=== PATIENT | male | born 1985 | race Caucasian/White ===

== ENCOUNTER 2020-06-30 11:54 | Inpatient (IN) ==
[2020-06-30] MEDS ORDERED: Ondansetron 4 MG/2 ML VIAL IVP PRN ×2 (15:33→20:50)
[2020-06-30] MEDS ORDERED: *HR* Promethazine 25 MG/ML VIAL IM PRN ×2 (15:33→20:50)
[2020-06-30] MEDS ORDERED: Naloxone 0.4 MG/ML INJ IVP PRN ×2 (15:33→20:50)
[2020-06-30] MEDS ORDERED: *HR* HYDROmorphone (PF) 1 MG/ML SYRINGE IVP ONE (15:38)
[2020-06-30] MEDS ORDERED: Piperacillin/Tazobactam 3.375 GM in 0.9 % Sodium Chloride Mini Bag 100 ML IVPB SCH ×2 (16:00→22:00)
[2020-06-30] MEDS ORDERED: Potassium Chloride 20 MEQ, Lidocaine 1% 2 ML in 0.9 % Sodium Chloride 250 ML IVPB ONE (16:07)
[2020-06-30] MEDS ORDERED: 0.9 % Sodium Chloride 1,000 ML IVC ONE ×2 (16:11→20:50)
[2020-06-30] MEDS ORDERED: Vancomycin 1,500 MG/265 ML IV.SOLN IVPB SCH (18:00)
[2020-06-30] MEDS ORDERED: *HR* FentaNYL (PF) 100 MCG/2 ML VIAL ONE (18:10)
[2020-06-30] MEDS ORDERED: *HR* Midazolam HCl 2 MG/2 ML VIAL ONE (18:10)
[2020-06-30] MEDS ORDERED: Lidocaine -MPF 2% 2 ML VIAL ONE (18:10)
[2020-06-30] MEDS ORDERED: *HR* Succinylcholine 200 MG/10 ML VIAL IVP ONE (18:10)
[2020-06-30] MEDS ORDERED: Dexamethasone 4 MG/ML VIAL ONE (18:10)
[2020-06-30] MEDS ORDERED: *HR* Propofol 200 MG/20 ML VIAL IVP ONE (18:10)
[2020-06-30] MEDS ORDERED: Lidocaine -MPF 4% 5 ML AMPUL ONE (18:10)
[2020-06-30] MEDS ORDERED: Ondansetron 4 MG/2 ML VIAL ONE (18:10)
[2020-06-30] MEDS ORDERED: *HR* HYDROMORPHONE 2 MG/ML VIAL ONE (19:10)
[2020-06-30] MEDS: predniSONE 20 MG TABLET PO SCH (22:27)
[2020-06-30] MEDS: Vancomycin 1,500 MG/265 ML IV.SOLN IVPB SCH (22:28)
[2020-07-01 02:01] LABS: Red Cell Distribution Width 13.2 % (11.5-14.5)
[2020-07-01 02:02] LABS: Basophils # 0.1 K/mcL (0.0-0.2); Basophils % 0.4 %; Eosinophils % 0.2 %; Hematocrit 37.5 % (37.5-50.1); Hemoglobin 11.4 g/dL (12.9-16.9); Immature Granulocytes % 1.4 % (0-4); Lymphocytes # 1.1 K/mcL (0.6-4.6); Mean Corpuscular HGB Conc 30.4 g/dL (31.6-35.5); Mean Corpuscular Hemoglobin 26.6 pg (28.0-33.3); Mean Corpuscular Volume 87.6 fL (83.0-100.0); Mean Platelet Volume 9.9 fL (9.4-12.4); Monocytes # 1.4 K/mcL (0.0-1.3); Monocytes % 5.1 %; Neutrophils # 23.6 K/mcL (1.6-8.9); Platelet Count 330 K/mcL (140-400); Red Blood Count 4.28 M/mcL (4.19-5.50); Segmented Neutrophils % 88.9 %; White Blood Count 26.5 K/mcL (4.3-11.1)
[2020-07-01 02:06] LABS: Eosinophils # 0.1 K/mcL (0.0-0.6)
[2020-07-01 02:14] LABS: BUN/Creatinine Ratio 11 (6-26); Blood Urea Nitrogen 12 mg/dL (6-20); Calcium 8.4 mg/dL (8.6-10.3); Carbon Dioxide 26 mEq/L (23-29); Chloride 103 mEq/L (98-107); Glucose 156 mg/dL (70-105); Osmolality,Calculated 285 (280-300); Potassium 4.3 mEq/L (3.5-5.1); Sodium 136 mEq/L (136-145); eGFR For African Americans > 60 (> 60); eGFR For Non-African Americans > 60 (> 60)
[2020-07-01 03:06] LABS: Platelet Estimate Normal (Normal)
[2020-07-01 03:45] LABS: Amphetamine Screen,Urine Negative ng/mL (Cutoff=1000); Barbiturate Screen,Urine Negative ng/mL (Cutoff=200); Benzodiazepines Screen,Urine Positive ng/mL (Cutoff=200); Cannabinoid Screen,Urine Negative ng/mL (Cutoff = 50); Cocaine Screen,Urine Negative ng/mL (Cutoff= 300); Opiate Screen,Urine Positive ng/mL (Cutoff=300); Phencyclidine Screen,Urine Negative ng/mL (Cutoff=25)
[2020-07-01] MEDS ORDERED: Ketorolac 30 MG/ML VIAL IVP ONE (04:02)
[2020-07-01] MEDS ORDERED: *HR* HYDROmorphone 2 MG TABLET PO ONE ×2 (04:31→20:54)
[2020-07-01] MEDS: Piperacillin/Tazobactam 3.375 GM in 0.9 % Sodium Chloride Mini Bag 100 ML IVPB SCH ×5 (05:06→15:30)
[2020-07-01] MEDS: Vancomycin 1,500 MG/265 ML IV.SOLN IVPB SCH ×3 (05:16→23:02)
[2020-07-01] MEDS ORDERED: *HR* LORazepam 2 MG/ML VIAL IVP ONE (06:09)
[2020-07-01] MEDS: predniSONE 20 MG TABLET PO SCH (08:24)
[2020-07-01] MEDS: VELPATASVIR PO SCH (08:27)
[2020-07-01] MEDS: SOFOSBUVIR PO SCH (08:27)
[2020-07-01 11:34] LABS: Estimated Average Glucose 120 mg/dl
[2020-07-01] MEDS: 0.9 % Sodium Chloride 1,000 ML IVC SCH ×2 (13:34→19:40)
[2020-07-02] MEDS: Piperacillin/Tazobactam 3.375 GM in 0.9 % Sodium Chloride Mini Bag 100 ML IVPB SCH ×4 (00:38→23:28)
[2020-07-02] MEDS ORDERED: *HR* LORazepam 2 MG/ML VIAL IVP ONE (03:37)
[2020-07-02] MEDS: *HR* HYDROmorphone 2 MG TABLET PO PRN ×3 (04:03→10:00)
[2020-07-02] MEDS: Vancomycin 1,500 MG/265 ML IV.SOLN IVPB SCH (05:18)
[2020-07-02 05:32] LABS: Basophils # 0.1 K/mcL (0.0-0.2); Basophils % 0.6 %; Eosinophils # 0.3 K/mcL (0.0-0.6); Eosinophils % 1.3 %; Immature Granulocytes % 2.7 % (0-4); Mean Corpuscular HGB Conc 31.4 g/dL (31.6-35.5); Mean Corpuscular Hemoglobin 27.4 pg (28.0-33.3); Mean Corpuscular Volume 87.1 fL (83.0-100.0); Mean Platelet Volume 9.4 fL (9.4-12.4); Monocytes # 1.2 K/mcL (0.0-1.3); Monocytes % 5.8 %; Neutrophils # 14.8 K/mcL (1.6-8.9); Platelet Count 375 K/mcL (140-400); Red Blood Count 4.02 M/mcL (4.19-5.50); Red Cell Distribution Width 13.1 % (11.5-14.5); Segmented Neutrophils % 74.6 %; White Blood Count 19.8 K/mcL (4.3-11.1)
[2020-07-02 05:51] LABS: BUN/Creatinine Ratio 16 (6-26); Blood Urea Nitrogen 13 mg/dL (6-20); Calcium 8.6 mg/dL (8.6-10.3); Carbon Dioxide 30 mEq/L (23-29); Chloride 102 mEq/L (98-107); Glucose 163 mg/dL (70-105); Magnesium 2.1 mg/dL (1.6-2.6); Osmolality,Calculated 292 (280-300); Phosphorous 3.2 mg/dL (2.7-4.5); Potassium 3.5 mEq/L (3.5-5.1); Sodium 139 mEq/L (136-145); eGFR For African Americans > 60 (> 60); eGFR For Non-African Americans > 60 (> 60)
[2020-07-02] MEDS: VELPATASVIR PO SCH (07:51)
[2020-07-02] MEDS: SOFOSBUVIR PO SCH (07:51)
[2020-07-02] MEDS: 0.9 % Sodium Chloride 1,000 ML IVC SCH ×3 (08:02→23:31)
[2020-07-02] MEDS ORDERED: Ketorolac 15 MG/ML VIAL IVP PRN (11:00)
[2020-07-02] MEDS: Vancomycin 2,000 MG/520 ML IV.SOLN IVPB SCH ×2 (13:38→21:10)
[2020-07-02] MEDS: *HR* HYDROcodone/Acet 7.5/325 mg TABLET PO PRN (14:08)
[2020-07-02] MEDS ORDERED: *HR* HYDROmorphone 2 MG TABLET PO ONE (23:15)
[2020-07-03 01:57] LABS: Basophils # 0.1 K/mcL (0.0-0.2); Basophils % 0.9 %; Eosinophils # 0.3 K/mcL (0.0-0.6); Eosinophils % 2.7 %; Hemoglobin 10.7 g/dL (12.9-16.9); Immature Granulocytes % 4.3 % (0-4); Lymphocytes # 3.6 K/mcL (0.6-4.6); Lymphocytes % 30.8 %; Mean Corpuscular HGB Conc 31.5 g/dL (31.6-35.5); Mean Corpuscular Hemoglobin 27.6 pg (28.0-33.3); Mean Corpuscular Volume 87.6 fL (83.0-100.0); Mean Platelet Volume 9.3 fL (9.4-12.4); Monocytes # 0.9 K/mcL (0.0-1.3); Monocytes % 7.6 %; Neutrophils # 6.3 K/mcL (1.6-8.9); Platelet Count 377 K/mcL (140-400); Red Blood Count 3.88 M/mcL (4.19-5.50); Red Cell Distribution Width 13.2 % (11.5-14.5); Segmented Neutrophils % 53.7 %; White Blood Count 11.8 K/mcL (4.3-11.1)
[2020-07-03] MEDS: *HR* HYDROcodone/Acet 7.5/325 mg TABLET PO PRN ×4 (06:17→21:38)
[2020-07-03 09:05] LABS: BUN/Creatinine Ratio 15 (6-26); Blood Urea Nitrogen 14 mg/dL (6-20); Calcium 8.1 mg/dL (8.6-10.3); Carbon Dioxide 30 mEq/L (23-29); Chloride 104 mEq/L (98-107); Glucose 100 mg/dL (70-105); Osmolality,Calculated 287 (280-300); Potassium 3.9 mEq/L (3.5-5.1); Sodium 138 mEq/L (136-145); eGFR For African Americans > 60 (> 60); eGFR For Non-African Americans > 60 (> 60)
[2020-07-03] MEDS: Vancomycin 2,000 MG/520 ML IV.SOLN IVPB SCH ×2 (11:04→17:35)
[2020-07-03] MEDS: Piperacillin/Tazobactam 3.375 GM in 0.9 % Sodium Chloride Mini Bag 100 ML IVPB SCH ×3 (11:05→23:41)
[2020-07-03] MEDS: VELPATASVIR PO SCH (11:10)
[2020-07-03] MEDS: SOFOSBUVIR PO SCH (11:10)
[2020-07-03] MEDS: 0.9 % Sodium Chloride 1,000 ML IVC SCH (17:33)
[2020-07-03] MEDS ORDERED: *HR* LORazepam 2 MG/ML VIAL IVP ONE (20:45)
[2020-07-03] MEDS ORDERED: Acetaminophen 325 MG TABLET PO ONE (21:44)
[2020-07-04 01:22] LABS: Hematocrit 37.7 % (37.5-50.1); Hemoglobin 11.8 g/dL (12.9-16.9); Mean Corpuscular HGB Conc 31.3 g/dL (31.6-35.5); Mean Corpuscular Hemoglobin 27.6 pg (28.0-33.3); Mean Corpuscular Volume 88.1 fL (83.0-100.0); Mean Platelet Volume 8.9 fL (9.4-12.4); Platelet Count 409 K/mcL (140-400); Red Blood Count 4.28 M/mcL (4.19-5.50); Red Cell Distribution Width 13.3 % (11.5-14.5); White Blood Count 11.9 K/mcL (4.3-11.1)
[2020-07-04 01:35] LABS: BUN/Creatinine Ratio 15 (6-26); Blood Urea Nitrogen 15 mg/dL (6-20); Calcium 8.6 mg/dL (8.6-10.3); Carbon Dioxide 30 mEq/L (23-29); Chloride 104 mEq/L (98-107); Glucose 104 mg/dL (70-105); Osmolality,Calculated 291 (280-300); Potassium 3.9 mEq/L (3.5-5.1); Sodium 140 mEq/L (136-145); eGFR For African Americans > 60 (> 60); eGFR For Non-African Americans > 60 (> 60)
[2020-07-04 01:50] LABS: Eosinophils # 0.2 K/mcL (0.0-0.6); Lymphocytes # 3.6 K/mcL (0.6-4.6); Monocytes # 0.7 K/mcL (0.0-1.3); Neutrophils # 7.1 K/mcL (1.6-8.9)
[2020-07-04] MEDS: *HR* HYDROcodone/Acet 7.5/325 mg TABLET PO PRN (01:59)
[2020-07-04] MEDS: Vancomycin 2,000 MG/520 ML IV.SOLN IVPB SCH ×2 (02:00→05:10)
[2020-07-04 07:25] VITALS: BP 108/71
[2020-07-04] MEDS ORDERED: Vancomycin 1,500 MG/265 ML IV.SOLN IVPB SCH (10:00)
== END 2020-07-04 11:04 | disposition home or self-care (01) | DRG 854 ==
LOC: 3BNU → SUATTDRO 14:17
PROVIDERS: ADMIT Internal Medicine; ATTEND Family Medicine

== ENCOUNTER 2021-02-24 21:19 | Inpatient (IN) ==
[2021-02-24] MEDS ORDERED: 0.9 % Sodium Chloride 1,000 ML IVC ONE ×2 (21:30→22:01)
[2021-02-24] MEDS ORDERED: Piperacillin/Tazobactam 3.375 GM in 0.9 % Sodium Chloride Mini Bag 100 ML IVPB ONE (21:30)
[2021-02-24 21:44] LABS: Basophils # 0.1 K/mcL (0.0-0.2); Eosinophils # 0.1 K/mcL (0.0-0.6); Hemoglobin 13.2 g/dL (12.9-16.9); Immature Granulocytes % 4.6 % (0-4); Lymphocytes # 2.9 K/mcL (0.6-4.6); Lymphocytes % 24.1 %; Mean Corpuscular HGB Conc 30.7 g/dL (31.6-35.5); Mean Corpuscular Hemoglobin 26.6 pg (28.0-33.3); Mean Corpuscular Volume 86.7 fL (83.0-100.0); Mean Platelet Volume 9.6 fL (9.4-12.4); Monocytes # 0.6 K/mcL (0.0-1.3); Monocytes % 5.1 %; Neutrophils # 7.6 K/mcL (1.6-8.9); Platelet Count 340 K/mcL (140-400); Red Blood Count 4.96 M/mcL (4.19-5.50); Red Cell Distribution Width 13.5 % (11.5-14.5); Segmented Neutrophils % 64.2 %; White Blood Count 11.9 K/mcL (4.3-11.1)
[2021-02-24 22:05] LABS: Alanine Aminotransferase 16 Units/L (7-52); Albumin 4.2 g/dL (3.5-5.7); Albumin/Globulin Ratio 1.3 (1.1-2.2); Alkaline Phosphatase 71 Units/L (34-104); Aspartate Amino Transferase 28 Units/L (13-39); BUN/Creatinine Ratio 11 (6-26); Bilirubin,Indirect 0.3 mg/dL (0.0-1.0); Bilirubin,Total 0.3 mg/dL (0.3-1.0); Blood Urea Nitrogen 19 mg/dL (6-20); Calcium 9.1 mg/dL (8.6-10.3); Carbon Dioxide 23 mEq/L (23-29); Chloride 103 mEq/L (98-107); Globulin 3.3 g/dL (2.4-3.5); Glucose 242 mg/dL (70-105); Osmolality,Calculated 298 (280-300); Potassium 4.2 mEq/L (3.5-5.1); Sodium 139 mEq/L (136-145); Total Protein 7.5 g/dL (6.4-8.9); eGFR For African Americans 55 (> 60); eGFR For Non-African Americans 45 (> 60)
[2021-02-24] MEDS ORDERED: methylPREDNISolone 125 MG/2 ML VIAL IVP ONE (22:17)
[2021-02-24] MEDS ORDERED: Ipratropium/Albuterol Neb 3 ML IH PRN (22:17)
[2021-02-24] MEDS ORDERED: Ipratropium/Albuterol Neb 3 ML IH ONE (22:19)
[2021-02-24 22:37] LABS: Troponin I < 0.03 ng/mL (< 0.04)
[2021-02-24 22:58] LABS: ABG Base Excess -2 mEq/L (-2 to 3); ABG HCO3 25 mEq/L (21-27); ABG Oxygen Saturation 88 % (95-98); ABG PCO2 51 mmHg (35-45); ABG PO2 61 mmHg (85-104); ABG TCO2 27 mEq/L (20-26)
[2021-02-25] MEDS ORDERED: Naloxone 0.4 MG/ML INJ IVP PRN (00:42)
[2021-02-25] MEDS ORDERED: Ondansetron 4 MG/2 ML VIAL IVP PRN (00:42)
[2021-02-25 03:37] LABS: Hematocrit 44.1 % (37.5-50.1); Hemoglobin 13.4 g/dL (12.9-16.9); Immature Platelets 5.5 % (1.1-6.1); Mean Corpuscular HGB Conc 30.4 g/dL (31.6-35.5); Mean Corpuscular Hemoglobin 26.4 pg (28.0-33.3); Mean Corpuscular Volume 86.8 fL (83.0-100.0); Mean Platelet Volume 10.9 fL (9.4-12.4); Platelet Count 175 K/mcL (140-400); Red Blood Count 5.08 M/mcL (4.19-5.50); Red Cell Distribution Width 13.5 % (11.5-14.5); White Blood Count 8.9 K/mcL (4.3-11.1)
[2021-02-25 03:41] LABS: INR 1.1; Prothrombin Time 12.8 Seconds (9.4-12.1)
[2021-02-25 03:56] LABS: BUN/Creatinine Ratio 17 (6-26); Blood Urea Nitrogen 20 mg/dL (6-20); Calcium 8.3 mg/dL (8.6-10.3); Carbon Dioxide 23 mEq/L (23-29); Chloride 109 mEq/L (98-107); Glucose 122 mg/dL (70-105); Magnesium 1.9 mg/dL (1.6-2.6); Osmolality,Calculated 294 (280-300); Potassium 4.3 mEq/L (3.5-5.1); Sodium 140 mEq/L (136-145); eGFR For African Americans > 60 (> 60); eGFR For Non-African Americans > 60 (> 60)
[2021-02-25 04:37] LABS: Lymphocytes # 0.5 K/mcL (0.6-4.6); Monocytes # 0.4 K/mcL (0.0-1.3); Neutrophils # 7.8 K/mcL (1.6-8.9); Platelet Estimate Normal (Normal); Toxic Granulation Present (Not Present)
[2021-02-25] MEDS: Piperacillin/Tazobactam 3.375 GM in 0.9 % Sodium Chloride Mini Bag 100 ML IVPB SCH ×3 (05:38→21:28)
[2021-02-25] MEDS ORDERED: Isovue-370 500 ML BOTTLE IVP ONE (07:49)
[2021-02-25 14:58] LABS: Bilirubin,Urine Negative (Negative); Blood,Urine Negative (Negative); Clarity,Urine Clear (Clear); Color,Urine Yellow (Yellow); Glucose,Urine (UA) Normal (Normal); Ketones,Urine Negative (Negative); Leukocyte Esterase,Urine Negative (Negative); Nitrite,Urine Negative (Negative); PH,Urine 6.5 pH Units (5.0-8.0); Protein,Urine Negative (Neg-Trace); Specific Gravity,Urine 1.015 (1.010-1.025); Urobilinogen,Urine Normal (Normal)
[2021-02-25] MEDS: Ipratropium/Albuterol Neb 3 ML IH SCH ×3 (15:28→23:50)
[2021-02-25 16:05] LABS: Amphetamine Screen,Urine Negative ng/mL (Cutoff=1000); Barbiturate Screen,Urine Negative ng/mL (Cutoff=200); Benzodiazepines Screen,Urine Positive ng/mL (Cutoff=200); Cannabinoid Screen,Urine Negative ng/mL (Cutoff = 50); Cocaine Screen,Urine Negative ng/mL (Cutoff= 300); Opiate Screen,Urine Negative ng/mL (Cutoff=300); Phencyclidine Screen,Urine Negative ng/mL (Cutoff=25)
[2021-02-25] MEDS: Acetaminophen 325 MG TABLET PO PRN (20:55)
[2021-02-25] MEDS ORDERED: hydrOXYzine pamoate 25 MG CAPSULE PO ONE (21:13)
[2021-02-26 02:02] LABS: Basophils % 0.1 %; Hematocrit 38.7 % (37.5-50.1); Hemoglobin 12.3 g/dL (12.9-16.9); Immature Granulocytes % 0.3 % (0-4); Lymphocytes # 1.2 K/mcL (0.6-4.6); Lymphocytes % 8.7 %; Mean Corpuscular HGB Conc 31.8 g/dL (31.6-35.5); Mean Corpuscular Volume 84.9 fL (83.0-100.0); Mean Platelet Volume 10.1 fL (9.4-12.4); Monocytes # 0.9 K/mcL (0.0-1.3); Monocytes % 6.5 %; Neutrophils # 11.2 K/mcL (1.6-8.9); Platelet Count 261 K/mcL (140-400); Red Blood Count 4.56 M/mcL (4.19-5.50); Red Cell Distribution Width 13.7 % (11.5-14.5); Segmented Neutrophils % 84.4 %; White Blood Count 13.3 K/mcL (4.3-11.1)
[2021-02-26 02:31] LABS: BUN/Creatinine Ratio 16 (6-26); Blood Urea Nitrogen 15 mg/dL (6-20); Calcium 8.7 mg/dL (8.6-10.3); Carbon Dioxide 26 mEq/L (23-29); Chloride 105 mEq/L (98-107); Glucose 110 mg/dL (70-105); Osmolality,Calculated 289 (280-300); Potassium 4.1 mEq/L (3.5-5.1); Sodium 139 mEq/L (136-145); eGFR For African Americans > 60 (> 60); eGFR For Non-African Americans > 60 (> 60)
[2021-02-26] MEDS: Ipratropium/Albuterol Neb 3 ML IH SCH ×6 (03:02→23:43)
[2021-02-26] MEDS: Piperacillin/Tazobactam 3.375 GM in 0.9 % Sodium Chloride Mini Bag 100 ML IVPB SCH ×3 (05:08→21:40)
[2021-02-26] MEDS: Acetaminophen 325 MG TABLET PO PRN ×2 (05:21→11:00)
[2021-02-26] MEDS: hydrOXYzine pamoate 25 MG CAPSULE PO PRN ×2 (10:40→19:37)
[2021-02-26] MEDS: *HR* HYDROcodone/Acet 5/325 mg TABLET PO PRN ×2 (15:06→19:36)
[2021-02-26] MEDS: *HR* Heparin 5,000 UNIT/ML VIAL SQ SCH (18:07)
[2021-02-27] MEDS: *HR* HYDROcodone/Acet 5/325 mg TABLET PO PRN ×6 (00:07→21:53)
[2021-02-27] MEDS: Benzonatate 100 MG CAPSULE PO PRN ×2 (01:18→13:36)
[2021-02-27] MEDS: Ipratropium/Albuterol Neb 3 ML IH SCH ×6 (03:54→23:21)
[2021-02-27] MEDS: Piperacillin/Tazobactam 3.375 GM in 0.9 % Sodium Chloride Mini Bag 100 ML IVPB SCH ×3 (05:02→21:53)
[2021-02-27] MEDS: *HR* Heparin 5,000 UNIT/ML VIAL SQ SCH ×2 (05:02→17:42)
[2021-02-27] MEDS: hydrOXYzine pamoate 25 MG CAPSULE PO PRN ×3 (05:02→21:53)
[2021-02-27] MEDS ORDERED: Acetaminophen IV 500 MG/50 ML BAG IVPB ONE (14:57)
[2021-02-27] MEDS: Saline Nasal Spray 44 ML BOTTLE NS PRN (22:57)
[2021-02-28] MEDS: Benzonatate 100 MG CAPSULE PO PRN (00:43)
[2021-02-28] MEDS ORDERED: Acetaminophen IV 1,000 MG/100 ML BAG IVPB ONE (00:49)
[2021-02-28] MEDS: Albuterol 2.5 MG/3 ML NEBULIZER IH PRN ×2 (01:48→05:20)
[2021-02-28] MEDS: Saline Nasal Spray 44 ML BOTTLE NS PRN ×2 (02:41→05:00)
[2021-02-28] MEDS: *HR* HYDROcodone/Acet 5/325 mg TABLET PO PRN ×2 (02:41→08:00)
[2021-02-28] MEDS: Ipratropium/Albuterol Neb 3 ML IH SCH ×2 (03:47→07:07)
[2021-02-28] MEDS: *HR* Heparin 5,000 UNIT/ML VIAL SQ SCH (05:01)
[2021-02-28] MEDS: Piperacillin/Tazobactam 3.375 GM in 0.9 % Sodium Chloride Mini Bag 100 ML IVPB SCH (05:01)
[2021-02-28 06:39] VITALS: BP 138/38
== END 2021-02-28 11:54 | disposition home or self-care (01) | DRG 871 ==
LOC: 2NENU 21:19 → EMEROOARM 21:19 → SUATTDRO 23:57 → 2NENU 02-25 01:23 → SUATTDRO 02-25 13:38 → 3BNU 02-27 17:33
PROVIDERS: ADMIT Student in an Organized Health Care Education/Training Program; ATTEND Internal Medicine

== ENCOUNTER 2021-03-01 14:20 | Observation (INO) ==
[2021-03-01] MEDS ORDERED: Isovue-370 500 ML BOTTLE IVP ONE (15:05)
[2021-03-01] MEDS ORDERED: Piperacillin/Tazobactam 3.375 GM in 0.9 % Sodium Chloride Mini Bag 100 ML IVPB ONE (15:06)
[2021-03-01] MEDS ORDERED: Cefepime HCl 2,000 MG in Water for inj. (sterile) 20 ML IVP ONE (15:06)
[2021-03-01] MEDS ORDERED: levoFLOXacin 750 MG/150 ML 750 MG/150 ML BAG IVPB ONE (15:06)
[2021-03-01 15:15] LABS: Basophils # 0.1 K/mcL (0.0-0.2); Basophils % 0.7 %; Eosinophils # 0.2 K/mcL (0.0-0.6); Eosinophils % 1.1 %; Hematocrit 37.9 % (37.5-50.1); Immature Granulocytes % 1.5 % (0-4); Lymphocytes # 1.8 K/mcL (0.6-4.6); Lymphocytes % 13.2 %; Mean Corpuscular HGB Conc 31.7 g/dL (31.6-35.5); Mean Corpuscular Hemoglobin 26.4 pg (28.0-33.3); Mean Corpuscular Volume 83.5 fL (83.0-100.0); Mean Platelet Volume 9.4 fL (9.4-12.4); Monocytes # 1.1 K/mcL (0.0-1.3); Monocytes % 7.9 %; Neutrophils # 10.4 K/mcL (1.6-8.9); Platelet Count 344 K/mcL (140-400); Red Blood Count 4.54 M/mcL (4.19-5.50); Red Cell Distribution Width 13.3 % (11.5-14.5); Segmented Neutrophils % 75.6 %; White Blood Count 13.8 K/mcL (4.3-11.1)
[2021-03-01 15:36] LABS: BUN/Creatinine Ratio 18 (6-26); Blood Urea Nitrogen 14 mg/dL (6-20); Calcium 9.2 mg/dL (8.6-10.3); Carbon Dioxide 26 mEq/L (23-29); Chloride 102 mEq/L (98-107); Glucose 101 mg/dL (70-105); Osmolality,Calculated 285 (280-300); Phosphorous 3.5 mg/dL (2.7-4.5); Potassium 3.5 mEq/L (3.5-5.1); Sodium 137 mEq/L (136-145); Troponin I < 0.03 ng/mL (< 0.04); eGFR For African Americans > 60 (> 60); eGFR For Non-African Americans > 60 (> 60)
[2021-03-01] MEDS: 0.9 % Sodium Chloride 1,000 ML IVC SCH ×3 (15:43→19:54)
[2021-03-01] MEDS ORDERED: Ketorolac 30 MG/ML VIAL IVP ONE (16:11)
[2021-03-01] MEDS: Vancomycin 1,750 MG/517.5 ML IV.SOLN IVPB ONE ×2 (17:04→20:52)
[2021-03-01] MEDS ORDERED: Acetaminophen 325 MG TABLET PO PRN (17:07)
[2021-03-01] MEDS ORDERED: Naloxone 0.4 MG/ML INJ IVP PRN (17:07)
[2021-03-01] MEDS ORDERED: Ondansetron 4 MG/2 ML VIAL IVP PRN (17:07)
[2021-03-01] MEDS ORDERED: Melatonin 3 MG TABLET PO PRN (17:07)
[2021-03-01] MEDS ORDERED: Ipratropium/Albuterol Neb 3 ML IH PRN (18:00)
[2021-03-01] MEDS: Ipratropium/Albuterol Neb 3 ML IH SCH ×2 (19:52→23:31)
[2021-03-01] MEDS: Nicotine 14 MG PATCH.TD24 TD SCH (20:30)
[2021-03-01] MEDS: Ketorolac 30 MG/ML VIAL IVP PRN (20:33)
[2021-03-01] MEDS: Ibuprofen 400 MG TABLET PO PRN (22:54)
[2021-03-01] MEDS: Piperacillin/Tazobactam 3.375 GM in 0.9 % Sodium Chloride Mini Bag 100 ML IVPB SCH (23:56)
[2021-03-02] MEDS: Ketorolac 30 MG/ML VIAL IVP PRN ×4 (03:25→23:48)
[2021-03-02] MEDS: Ipratropium/Albuterol Neb 3 ML IH SCH ×6 (04:06→23:26)
[2021-03-02] MEDS ORDERED: *HR* LORazepam 2 MG/ML VIAL IVP ONE (04:42)
[2021-03-02] MEDS: Piperacillin/Tazobactam 3.375 GM in 0.9 % Sodium Chloride Mini Bag 100 ML IVPB SCH ×3 (09:02→23:49)
[2021-03-02] MEDS: Nicotine 14 MG PATCH.TD24 TD SCH (09:03)
[2021-03-02 10:39] LABS: Basophils # 0.1 K/mcL (0.0-0.2); Basophils % 0.6 %; Eosinophils # 0.2 K/mcL (0.0-0.6); Eosinophils % 1.7 %; Hematocrit 35.5 % (37.5-50.1); Hemoglobin 11.2 g/dL (12.9-16.9); Immature Granulocytes % 1.9 % (0-4); Lymphocytes % 14.8 %; Mean Corpuscular HGB Conc 31.5 g/dL (31.6-35.5); Mean Corpuscular Hemoglobin 26.3 pg (28.0-33.3); Mean Corpuscular Volume 83.3 fL (83.0-100.0); Mean Platelet Volume 9.3 fL (9.4-12.4); Monocytes # 1.1 K/mcL (0.0-1.3); Neutrophils # 9.7 K/mcL (1.6-8.9); Platelet Count 318 K/mcL (140-400); Red Blood Count 4.26 M/mcL (4.19-5.50); Red Cell Distribution Width 13.3 % (11.5-14.5); White Blood Count 13.3 K/mcL (4.3-11.1)
[2021-03-02] MEDS: *HR* HYDROcodone/Acet 5/325 mg TABLET PO PRN ×2 (12:52→19:16)
[2021-03-02] MEDS: Nicotine 2 MG GUM BC PRN ×2 (16:02→19:16)
[2021-03-02] MEDS: hydrOXYzine pamoate 25 MG CAPSULE PO PRN (19:16)
[2021-03-02] MEDS: Melatonin 3 MG TABLET PO SCH (21:31)
[2021-03-03] MEDS: *HR* HYDROcodone/Acet 5/325 mg TABLET PO PRN ×4 (02:15→22:18)
[2021-03-03 02:26] LABS: Basophils # 0.1 K/mcL (0.0-0.2); Basophils % 0.4 %; Eosinophils # 0.3 K/mcL (0.0-0.6); Hematocrit 32.9 % (37.5-50.1); Hemoglobin 10.5 g/dL (12.9-16.9); Immature Granulocytes % 2.7 % (0-4); Lymphocytes # 3.2 K/mcL (0.6-4.6); Lymphocytes % 24.7 %; Mean Corpuscular HGB Conc 31.9 g/dL (31.6-35.5); Mean Corpuscular Hemoglobin 26.6 pg (28.0-33.3); Mean Corpuscular Volume 83.5 fL (83.0-100.0); Mean Platelet Volume 9.4 fL (9.4-12.4); Monocytes % 7.4 %; Platelet Count 342 K/mcL (140-400); Red Blood Count 3.94 M/mcL (4.19-5.50); Red Cell Distribution Width 13.2 % (11.5-14.5); Segmented Neutrophils % 62.8 %; White Blood Count 12.8 K/mcL (4.3-11.1)
[2021-03-03 02:44] LABS: BUN/Creatinine Ratio 15 (6-26); Blood Urea Nitrogen 13 mg/dL (6-20); Calcium 8.2 mg/dL (8.6-10.3); Carbon Dioxide 27 mEq/L (23-29); Chloride 105 mEq/L (98-107); Glucose 114 mg/dL (70-105); Osmolality,Calculated 293 (280-300); Potassium 3.3 mEq/L (3.5-5.1); Sodium 141 mEq/L (136-145); eGFR For African Americans > 60 (> 60); eGFR For Non-African Americans > 60 (> 60)
[2021-03-03] MEDS: hydrOXYzine pamoate 25 MG CAPSULE PO PRN ×2 (03:12→22:12)
[2021-03-03] MEDS: Ipratropium/Albuterol Neb 3 ML IH SCH ×6 (03:55→23:22)
[2021-03-03] MEDS ORDERED: *HR* LORazepam 2 MG/ML VIAL IVP ONE ×2 (04:38→21:33)
[2021-03-03] MEDS: *HR* Enoxaparin 40 MG/0.4 ML SYRINGE SQ SCH (04:52)
[2021-03-03] MEDS: Nicotine 14 MG PATCH.TD24 TD SCH (09:27)
[2021-03-03] MEDS: Piperacillin/Tazobactam 3.375 GM in 0.9 % Sodium Chloride Mini Bag 100 ML IVPB SCH ×2 (09:28→16:20)
[2021-03-03] MEDS: Ketorolac 30 MG/ML VIAL IVP PRN ×2 (11:49→21:10)
[2021-03-03] MEDS: Ibuprofen 400 MG TABLET PO PRN (13:29)
[2021-03-03] MEDS: Melatonin 3 MG TABLET PO SCH (22:13)
[2021-03-04] MEDS: Piperacillin/Tazobactam 3.375 GM in 0.9 % Sodium Chloride Mini Bag 100 ML IVPB SCH ×3 (00:09→15:40)
[2021-03-04] MEDS: Ipratropium/Albuterol Neb 3 ML IH SCH ×6 (03:50→23:23)
[2021-03-04] MEDS: *HR* HYDROcodone/Acet 5/325 mg TABLET PO PRN ×3 (04:07→23:42)
[2021-03-04] MEDS: *HR* Enoxaparin 40 MG/0.4 ML SYRINGE SQ SCH (05:15)
[2021-03-04 06:43] LABS: Basophils % 0.4 %; Eosinophils # 0.2 K/mcL (0.0-0.6); Eosinophils % 1.5 %; Hematocrit 34.5 % (37.5-50.1); Hemoglobin 11.2 g/dL (12.9-16.9); Immature Granulocytes % 1.9 % (0-4); Lymphocytes # 2.7 K/mcL (0.6-4.6); Lymphocytes % 26.7 %; Mean Corpuscular HGB Conc 32.5 g/dL (31.6-35.5); Mean Corpuscular Hemoglobin 27.2 pg (28.0-33.3); Mean Corpuscular Volume 83.7 fL (83.0-100.0); Mean Platelet Volume 9.7 fL (9.4-12.4); Monocytes # 0.7 K/mcL (0.0-1.3); Monocytes % 6.8 %; Neutrophils # 6.4 K/mcL (1.6-8.9); Platelet Count 366 K/mcL (140-400); Red Blood Count 4.12 M/mcL (4.19-5.50); Red Cell Distribution Width 13.6 % (11.5-14.5); Segmented Neutrophils % 62.7 %; White Blood Count 10.2 K/mcL (4.3-11.1)
[2021-03-04 07:03] LABS: BUN/Creatinine Ratio 16 (6-26); Blood Urea Nitrogen 14 mg/dL (6-20); Calcium 8.4 mg/dL (8.6-10.3); Carbon Dioxide 26 mEq/L (23-29); Chloride 108 mEq/L (98-107); Glucose 114 mg/dL (70-105); Osmolality,Calculated 293 (280-300); Potassium 3.6 mEq/L (3.5-5.1); Sodium 141 mEq/L (136-145); eGFR For African Americans > 60 (> 60); eGFR For Non-African Americans > 60 (> 60)
[2021-03-04 07:37] LABS: Platelet Estimate Normal (Normal)
[2021-03-04] MEDS: Nicotine 14 MG PATCH.TD24 TD SCH (09:28)
[2021-03-04] MEDS: Ketorolac 30 MG/ML VIAL IVP PRN ×2 (10:02→23:18)
[2021-03-04] MEDS: Loratadine 10 MG TABLET PO SCH (11:33)
[2021-03-04] MEDS: Acetaminophen 325 MG TABLET PO SCH ×2 (15:39→20:49)
[2021-03-04] MEDS ORDERED: *HR* LORazepam 2 MG/ML VIAL IVP ONE (23:15)
[2021-03-04] MEDS: Melatonin 3 MG TABLET PO SCH (23:17)
[2021-03-05] MEDS: Piperacillin/Tazobactam 3.375 GM in 0.9 % Sodium Chloride Mini Bag 100 ML IVPB SCH ×4 (00:52→23:08)
[2021-03-05] MEDS: Ipratropium/Albuterol Neb 3 ML IH SCH ×6 (03:58→23:05)
[2021-03-05] MEDS: Acetaminophen 325 MG TABLET PO SCH ×4 (08:09→20:30)
[2021-03-05] MEDS: Loratadine 10 MG TABLET PO SCH (08:09)
[2021-03-05] MEDS: Nicotine 14 MG PATCH.TD24 TD SCH (08:10)
[2021-03-05] MEDS: Ketorolac 30 MG/ML VIAL IVP PRN ×2 (08:16→17:53)
[2021-03-05] MEDS: *HR* HYDROcodone/Acet 5/325 mg TABLET PO PRN ×3 (09:44→21:56)
[2021-03-05] MEDS: Ibuprofen 400 MG TABLET PO PRN ×2 (11:52→20:35)
[2021-03-05] MEDS ORDERED: *HR* HYDROcodone/Acet 5/325 mg TABLET PO ONE (13:04)
[2021-03-05] MEDS: Melatonin 3 MG TABLET PO SCH (20:35)
[2021-03-05] MEDS: hydrOXYzine pamoate 25 MG CAPSULE PO PRN (20:35)
[2021-03-05] MEDS ORDERED: *HR* LORazepam 2 MG/ML VIAL IVP ONE (21:42)
[2021-03-05] MEDS: Fluticasone Propionate Nasal 50 MCG/SPRAY BOTTLE NS SCH (23:51)
[2021-03-06] MEDS: *HR* HYDROcodone/Acet 5/325 mg TABLET PO PRN ×4 (03:20→20:11)
[2021-03-06] MEDS: Ipratropium/Albuterol Neb 3 ML IH SCH ×6 (03:54→23:39)
[2021-03-06] MEDS: Ibuprofen 400 MG TABLET PO PRN (04:32)
[2021-03-06] MEDS: Loratadine 10 MG TABLET PO SCH (08:32)
[2021-03-06] MEDS: Nicotine 14 MG PATCH.TD24 TD SCH (08:32)
[2021-03-06] MEDS: Fluticasone Propionate Nasal 50 MCG/SPRAY BOTTLE NS SCH (08:32)
[2021-03-06] MEDS: Acetaminophen 325 MG TABLET PO SCH (08:33)
[2021-03-06] MEDS: Piperacillin/Tazobactam 3.375 GM in 0.9 % Sodium Chloride Mini Bag 100 ML IVPB SCH ×3 (08:33→23:07)
[2021-03-06] MEDS ORDERED: MethylPREDNISolone 40 MG/ML VIAL IVP ONE (10:48)
[2021-03-06] MEDS ORDERED: Acetaminophen 325 MG TABLET PO PRN (13:45)
[2021-03-06] MEDS: Gabapentin 100 MG CAPSULE PO SCH ×3 (14:03→20:12)
[2021-03-06] MEDS: hydrOXYzine pamoate 25 MG CAPSULE PO PRN (20:12)
[2021-03-06] MEDS: Lactobacillus 1 EACH CAP.SPRINK PO SCH (20:12)
[2021-03-06] MEDS ORDERED: *HR* LORazepam 2 MG/ML VIAL IVP ONE (21:59)
[2021-03-06] MEDS: Melatonin 3 MG TABLET PO SCH (23:07)
[2021-03-07] MEDS: *HR* HYDROcodone/Acet 5/325 mg TABLET PO PRN ×4 (00:02→12:29)
[2021-03-07] MEDS: Ipratropium/Albuterol Neb 3 ML IH SCH ×3 (04:07→11:18)
[2021-03-07 07:40] VITALS: BP 123/79
[2021-03-07] MEDS: Nicotine 14 MG PATCH.TD24 TD SCH (09:11)
[2021-03-07] MEDS: Lactobacillus 1 EACH CAP.SPRINK PO SCH (09:25)
[2021-03-07] MEDS: Piperacillin/Tazobactam 3.375 GM in 0.9 % Sodium Chloride Mini Bag 100 ML IVPB SCH (09:25)
[2021-03-07] MEDS: Gabapentin 100 MG CAPSULE PO SCH (09:25)
[2021-03-07] MEDS: Fluticasone Propionate Nasal 50 MCG/SPRAY BOTTLE NS SCH (09:25)
[2021-03-07] MEDS: Loratadine 10 MG TABLET PO SCH (09:25)
== END 2021-03-07 12:47 ==
LOC: EMEROOARM 14:20 → 2ANU 14:20 → SUATTDRO 18:21 → 2ANU 19:30
PROVIDERS: ADMIT Internal Medicine; ATTEND Internal Medicine